=== PATIENT | male | born 1945 | race African-American/Black ===

== ENCOUNTER 2019-08-29 10:42 | Inpatient (IN) ==
--- NOTE | 2019-08-29 12:59 | XRay Report ---
XR chest 1V portable HISTORY: 73 years-old Male Chest Pain . Acute atypical chest pain COMPARISON: CT abdomen and pelvis 07/16/2012 TECHNIQUE: Portable AP view of the chest FINDINGS: Cardiac silhouette is upper limits of normal in size, unchanged. Calcified plaque of the thoracic aor tic arch. No pneumothorax, pleural effusion, focal airspace consolidation or overt pulmonary edema. B ones of the chest appear grossly intact with degenerative changes of the shoulders and spine. IMPRESSION: No acute process. The above report was generated using voice recognition software. It may contain grammatical, syntax o r spelling errors. Electronically signed by: Jens Cartagena M.D. 08/29/2019 12:57 PM
[2019-08-29 13:03] LABS: Basophils # (auto) 0.02 K/uL (0-0.2); Basophils % (auto) 0.3 %; Eosinophils # (auto) 0.09 K/uL (0-0.5); Eosinophils % (auto) 1.2 %; Hematocrit (blood only) 35.3 % (42-52); Hemoglobin 12.4 g/dL (14.0-18.0); Immature Granulocytes # (auto) 0.02 K/uL (0.00-0.02); Immature Granulocytes % (auto) 0.3 %; Lymphocytes # (auto) 2.01 K/uL (1.2-3.4); Lymphocytes % (auto) 27.3 %; Mean Corpuscular Hemoglobin 29.5 pg (25-34); Mean Corpuscular Hgb Conc 35.1 g/dL (32-36); Mean Platelet Volume 10.5 fL (7.4-10.4); Monocytes # (auto) 0.86 K/uL (0.11-0.59); Monocytes % (auto) 11.7 %; Neutrophils # (auto) 4.37 K/uL (1.4-6.5); Neutrophils % (auto) 59.2 %; Platelet Count 244 K/uL (130-400); RDW Standard Deviation 42.7 fL (36.4-46.3); White Blood Count 7.37 K/uL (4.8-10.8)
[2019-08-29 13:37] LABS: Alanine Aminotransferase 42 U/L (12-78); Albumin Globulin Ratio 0.7 (0.9-2); Alkaline Phosphatase 108 U/L (45-117); Aspartate Aminotransferase 22 U/L (15-37); BUN Creatinine Ratio 17.6 (10-20); Bilirubin,Total 0.4 mg/dl (0.2-1); Blood Urea Nitrogen 91 mg/dl (7-18); Calcium 9.4 mg/dl (8.5-10.1); Carbon Dioxide 17 mmol/L (21-32); Chloride 110 mmol/L (98-107); Creatinine Clr Calc Pharmacy 9.8 ml/min; Est GFR (African American) 11.7; Est GFR (Non-African American) 10.1; Globulin 5.5 gm/dl (2.5-4.0); Glucose 108 mg/dl (70-99); Lipase 130 U/L (73-393); Magnesium 2.7 mg/dl (1.8-2.4); NT Pro B Type Natriuretic Pept 37 pg/ml (0-900); Phosphorus 5.2 mg/dl (2.5-4.9); Potassium 4.2 mmol/L (3.5-5.1); Sodium 139 mmol/L (136-145); Total Protein 9.5 gm/dl (6.4-8.2); Troponin I < 0.015 ng/ml (0-0.045)
--- NOTE | 2019-08-29 14:03 | Ultrasound Report ---
BILATERAL LOWER EXTREMITY VENOUS DOPPLER HISTORY: Acute pain and swelling of the bilateral lower extremities BLE edema COMPARISON STUDY: None. FINDINGS: There is normal compressibility, flow, and augmentation within the bilateral lower extremit y deep venous systems. Bilateral inguinal chain lymph nodes measure up to 3.6 x 1.9 x 2.2 cm on the r ight and 2.5 x 1.1 x 1.6 cm on the left, nonspecific. IMPRESSION: 1. No DVT within the right or left lower extremity. 2. Nonspecific bilateral inguinal chain adenopathy. Electronically signed by: Jens Cartagena M.D. 08/29/2019 2:02 PM
[2019-08-29 14:19] LABS: Appearance Urine Clear (Clear); Bacteria Urine Automated Negative (Negative); Bilirubin Urine Negative (Negative); Blood Urine Negative (Negative); Color Urine Yellow; Glucose Urine UA Negative (Negative); Ketones Urine Negative (Negative); Leukocyte Esterase Urine Trace (Negative); Nitrite Urine Negative (Negative); Protein Urine Negative (Negative); RBC Urine Automated 0-4 /hpf (0-4); Specific Gravity Urine 1.016 (1.000-1.030); Urobilinogen Urine Negative (Negative)
[2019-08-29] MEDS ORDERED: SODIUM CHLORIDE 0.9% 250 ML IV ONE (14:20)
[2019-08-29] MEDS ORDERED: SODIUM CHLORIDE 0.9% 500 ML IV STA (14:20)
[2019-08-29 14:46] LABS: pH VBG 7.38 (7.36-7.41)
--- NOTE | 2019-08-29 14:48 | History & Physical Report ---
Date of Service August 29, 2019 Assessment & Plan (1) Acute renal failure (ARF): Likely 2/2 bladder outlet obstruction. Sanchez placed. Will consult Urology. Cont with OVF overnight with expected improvement in kidney function. No evidence of UTI present. (2) Hypertension: around goal, cont home amlodipine but hold HCTZ and atenolol in setting of EMILY. (3) Hyperlipidemia: Cont home Lipitor (4) Osteoarthritis: Recently worse and was using Ibuprofen, which may be contributing to EMILY above. Will need to use other measures at this time. Will start with APAP prn. (5) DVT prophylaxis: Heparin Full Code-confirmed with him on admission. Partner is present but he states his POA is his cousin. Dispo-plan for home when medically stable. Rosaura Elmore DO [facility] Hospitalist History of Present Illness Chief Complaint: Difficulty urinating Primary Care Provider: Dr. El, [facility] 73-year-old man reports several days of difficulty urinating. He reports some dysuria when he has urinated. He denies any fevers chills or flank pain. Reports he has osteoarthritis and has been taking approximately 800 mg of ibuprofen daily for this lately, which is more than he typically takes. He states he is not sure if he has a history of prostate enlargement and is not on medications for this. He does have a history of nocturia. He does report some generalized abdominal pain more so in the suprapubic region, however, on exam this is not present. He describes malaise for approximately 1 week and has been apathetic to food during this time. He also reports decreased amount of water intake as he did not want to have issues with nocturia overnight. Review of systems is otherwise negative aside from some constipation 2 days ago where he took some Valladares laxative. Of note, the patient is a [facility] patient with no prior records here. I am unable to confirm medications that he is on but have requested records from the [facility], including the last 2 progress notes and most recent BMP. Allergies Allergy/AdvReac Type Severity Reaction Status Date / Time lisinopril Allergy Intermediate MOUTH Verified 08/29/19 12:28 SWELLING simvastatin AdvReac Intermediate CONSTIPATIO Verified 08/29/19 12:28 N Home Medications Home Medications Medication Instructions Recorded Confirmed Type amlodipine 15 mg PO QAM 08/29/19 08/29/19 History aspirin 81 mg PO QAM 08/29/19 08/29/19 History atenolol 25 mg PO QAM 08/29/19 08/29/19 History atorvastatin 80 mg PO HS 08/29/19 08/29/19 History carboxymethylcellulose sodium 1 drp OPB QID PRN 08/29/19 08/29/19 History [Artificial Tears (cmc)] clobetasol 1 applic TOPICAL BID PRN 08/29/19 08/29/19 History clotrimazole 1 applic TOPICAL BID PRN 08/29/19 08/29/19 History dibucaine 1 applic MT DAILY PRN 08/29/19 08/29/19 History hydrochlorothiazide 25 mg PO HS 08/29/19 08/29/19 History ibuprofen 200 mg PO Q6H PRN 08/29/19 08/29/19 History loratadine 10 mg PO QAM 08/29/19 08/29/19 History omeprazole 20 mg PO QAM 08/29/19 08/29/19 History potassium chloride 20 meq PO QAM 08/29/19 08/29/19 History selenium sulfide 2.5 % TOPICAL UD 08/29/19 08/29/19 History zolpidem [Ambien] 5 mg PO HS PRN 08/29/19 08/29/19 History Past Med/Surg History Surgical History No history of previous surgery Family History Mother Enlarged heart Father Coronary heart disease Social History Preferred Language: [place]an Communication Ability: Effective 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 Beliefs That Will Affect Care: None Current Living Situation: Significant Other Current Living Situation Comment: In a relationship with male partner Other Information That Helps Us Care for You: No Feels Safe at Home: Yes Safety Concerns: Feels Safe At This Time Smoking Status: Former smoker Tobacco Type: cigars ; Hx Alcohol Use: No Hx Substance Use: No Review of Systems Review of Systems: All systems reviewed & are unremarkable except as noted in HPI & below Physical Exam Physical Exam: CONSTITUTIONAL: WNWD, vitals as above, generally well- appearing EYES: EOMI bilaterally, PERRL, lens opacities present, normal conjunctivae, no scleral icterus ENT: external ear and nose normal, oropharynx clear, MMM, no sinus pressure to palpation NECK: trachea midline, no lymphadenopathy RESPIRATORY: clear to auscultation bilaterally, no crackles, rales or wheezes, normal respiratory effort CARDIOVASCULAR: regular rate and rhythm, S1 and 2 heard without murmurs, gallops or rubs, no JVD, no peripheral edema GASTROINTESTINAL: normal bowel sounds, soft, nontender, nondistended MUSCULOSKELETAL: strength 5/5 throughout, head is normocephalic and atraumatic SKIN: warm and dry NEUROLOGIC: No facial palsy, no dysarthria. CN 2-12 grossly intact, no sensory deficit, normal cognition, normal speech, no gross focal deficits. PSYCHIATRIC: alert cooperative and oriented to person, place and time. Results & Data Vital Signs (Past 12 Hours) Vital Signs Temp Pulse Resp BP Pulse Ox 08/29/19 14:10 81 21 99 08/29/19 14:01 75 18 99 08/29/19 14:00 75 18 139/87 99 08/29/19 13:53 80 19 99 08/29/19 13:52 85 17 152/85 H 08/29/19 13:00 76 21 143/92 H 99 08/29/19 12:50 71 18 99 08/29/19 12:22 98 08/29/19 10:53 36.3 C L 78 20 109/71 100 Laboratory Results Short CBC 08/29/19 Range/Units 12:32 WBC 7.37 (4.8-10.8) K/uL Hgb 12.4 L (14.0-18.0) g/dL Hct 35.3 L (42-52) % Plt Count 244 (130-400) K/uL BMP 08/29/19 12:32 Sodium 139 Potassium 4.2 Chloride 110 H Carbon Dioxide 17 L BUN 91 H Creatinine 5.21 H* Glucose 108 H Calcium 9.4 Cardiac Enzymes 08/29/19 Range/Units 12:32 Troponin I < 0.015 (0-0.045) ng/ml Liver Function 08/29/19 Range/Units 12:32 Total Bilirubin 0.4 (0.2-1) mg/dl AST 22 (15-37) U/L ALT 42 (12-78) U/L Alkaline Phosphatase 108 (45-117) U/L Albumin 4.0 (3.4-5.0) gm/dl Urine 08/29/19 Range/Units 13:50 Urine Color Yellow Urine Appearance Clear (Clear) Urine pH 5.0 (4.5-7.5) Ur Specific [place] 1.016 (1.000-1.030) Urine Protein Negative (Negative) Urine Glucose (UA) Negative (Negative) Diagnostic Findings XR chest 1V portable HISTORY: 73 years-old Male Chest Pain . Acute atypical chest pain COMPARISON: CT abdomen and pelvis 07/16/2012 TECHNIQUE: Portable AP view of the chest FINDINGS: Cardiac silhouette is upper limits of normal in size, unchanged. Calcified plaque of the thoracic aortic arch. No pneumothorax, pleural effusion, focal airspace consolidation or overt pulmonary edema. Bones of the chest appear grossly intact with degenerative changes of the shoulders and spine. IMPRESSION: No acute process. Medications Administered NSS in ER-1L
--- NOTE | 2019-08-29 14:56 | CT Scan Report ---
ABDOMEN AND PELVIS CT WITHOUT CONTRAST CT DOSE: 267.66 mGy.cm HISTORY: Acute renal failure renal failure TECHNIQUE: Multiaxial CT images of the abdomen and pelvis were performed without contrast. A dose lo wering technique was utilized adhering to the principles of ALARA. COMPARISON STUDY: CT abdomen and pelvis 07/16/2012, duplex venous Doppler study 08/29/2019. FINDINGS: Clear lung bases. No pneumatosis or pneumoperitoneum. Imaged inferior cardiac chambers are unremarkab le. Coronary arterial calcifications are noted. Gallbladder, spleen, pancreas and adrenal glands are unremarkable. Liver is within normal limits. Mild nonspecific bilateral perinephric stranding. Symmetric bilateral hydroureteronephrosis with alem ed urinary bladder distention measuring up to 16.6 cm in length. Mild associated perivesicular strand ing. No ureteral or ureteral calculi. Enlarged heterogeneous prostate. Small fat filled bilateral ing uinal hernias. Mild calcified plaque the abdominal aorta. Enlarged bilateral inguinal chain lymph nod es measure up to 3.7 x 1.0 cm on the right. Small hiatal hernia. No bowel obstruction or bowel wall thickening. Normal appendix. Small fat filled periumbilical hernia, diastases of 2.8 cm. Mild stranding of the bilateral inguinal chains and upper thighs anteriorly. Bones appear to be intact. Multilevel degenerative changes of the spine. IMPRESSION: 1. Prostamegaly with markedly distended urinary bladder suggests urinary bladder outlet obstruction r esulting in mild symmetric bilateral hydroureteronephrosis. Decompression with urinary bladder cathet er may be considered. 2. Nonspecific bilateral inguinal chain adenopathy, likely reactive. 3. No bowel obstruction or bowel wall thickening. Normal appendix. 4. Small hiatal hernia. 5. Additional findings as above. Electronically signed by: Jens Cartagena M.D. 08/29/2019 2:54 PM
--- NOTE | 2019-08-29 15:06 | Emergency Department Note ---
Entered by Purvi Sanders acting as a scribe for History of Present Illness General Chief complaint: Foot Injury/Pain Stated complaint: SWOLLEN RT FOOT Time Seen by Provider: 08/29/19 11:48 Source: patient Mode of arrival: ambulatory Limitations: no limitations History of Present Illness Onset (ago): day(s) 2 Location: lower extremity (right foot) Radiation: non-radiation Pain Consistency: + constant Maximum Pain Intensity: 6 Current Pain Intensity: 6 Relieved By: + none Exacerbated By: + none Associated symptoms: no chest pain, no cough (no cough or congestion) and no s hortness of breath Treatments prior to arrival: none The patient is a 73 year old male who presents to the ED with complaints of pain and swelling in the right foot that began 2 days ago. He rates his discomfort as a 6/10 in severity. He denies any recent injury or trauma to the foot. He notes he has experienced swelling in the legs in the past, but it normally goes away. He does take a daily diuretic and does not monitor his weight. He does not take daily blood thinners. The patient used to follow with the [facility] but states his original doctor left and he has not established with a new one yet. He denies any recent cough, congestion, chest pain or shortness of breath. He also complains of urinary incontinence for the past "few nights", as well as a f eeling of incomplete emptying. Last night, he urinated himself and states this has never happened before. Home Medications Home Medications Medication Instructions Recorded Confirmed Type amlodipine 15 mg PO QAM 08/29/19 08/29/19 History aspirin 81 mg PO QAM 08/29/19 08/29/19 History atenolol 25 mg PO QAM 08/29/19 08/29/19 History atorvastatin 80 mg PO HS 08/29/19 08/29/19 History carboxymethylcellulose sodium 1 drp OPB QID PRN 08/29/19 08/29/19 History [Artificial Tears ([facility])] clobetasol 1 applic TOPICAL BID PRN 08/29/19 08/29/19 History clotrimazole 1 applic TOPICAL BID PRN 08/29/19 08/29/19 History dibucaine 1 applic MN DAILY PRN 08/29/19 08/29/19 History hydrochlorothiazide 25 mg PO HS 08/29/19 08/29/19 History ibuprofen 200 mg PO Q6H PRN 08/29/19 08/29/19 History loratadine 10 mg PO QAM 08/29/19 08/29/19 History omeprazole 20 mg PO QAM 08/29/19 08/29/19 History potassium chloride 20 meq PO QAM 08/29/19 08/29/19 History selenium sulfide 2.5 % TOPICAL UD 08/29/19 08/29/19 History zolpidem [Ambien] 5 mg PO HS PRN 08/29/19 08/29/19 History Allergies Allergy/AdvReac Type Severity Reaction Status Date / Time lisinopril Allergy Intermediate MOUTH Verified 08/29/19 12:28 SWELLING simvastatin AdvReac Intermediate CONSTIPATIO Verified 08/29/19 12:28 N Past Med/Surg History Medical History Hyperlipidemia Hypertension Osteoarthritis Surgical History No history of previous surgery Family History Mother Enlarged heart Father Coronary heart disease Social History Preferred Language: Guyanese Communication Ability: Effective Discharge Door Operator Required: No Beliefs That Will Affect Care: None Current Living Situation: Significant Other Current Living Situation Comment: In a relationship with male partner Other Information That Helps Us Care for You: No Feels Safe at Home: Yes Safety Concerns: Feels Safe At This Time Smoking Status: Former smoker Tobacco Type: cigars ; Hx Alcohol Use: No Hx Substance Use: No Review of Systems See HPI for pertinent positives & negatives. and A total of 10 systems reviewed and were otherwise negative Physical Exam Vital Signs Vital Signs - 24 hr 08/29/19 10:53 08/29/19 12:22 08/29/19 12:50 Temperature 36.3 C L Temperature Source Oral Pulse Rate 78 71 Pulse Rate from SpO2 Sensor 71 Respiratory Rate 20 18 Respiratory Effort / Characteristics Non-Labored Respiratory Depth Normal Blood Pressure 109/71 Blood Pressure Mean 83 Pulse Oximetry 100 98 99 Oxygen Delivery Method Room Air Room Air Sepsis Recent Fever Within 48 Hours No Sepsis Action Taken by Nursing No Action Required 08/29/19 13:00 08/29/19 13:52 08/29/19 13:53 Temperature Temperature Source Pulse Rate 76 85 80 Pulse Rate from SpO2 Sensor 76 80 Respiratory Rate 21 17 19 Respiratory Effort / Characteristics Respiratory Depth Blood Pressure 143/92 H 152/85 H Blood Pressure Mean 111 101 Pulse Oximetry 99 99 Oxygen Delivery Method Sepsis Recent Fever Within 48 Hours Sepsis Action Taken by Nursing 08/29/19 14:00 08/29/19 14:01 08/29/19 14:10 Temperature Temperature Source Pulse Rate 75 75 81 Pulse Rate from SpO2 Sensor 76 76 79 Respiratory Rate 18 18 21 Respiratory Effort / Characteristics Respiratory Depth Blood Pressure 139/87 Blood Pressure Mean 107 Pulse Oximetry 99 99 99 Oxygen Delivery Method Sepsis Recent Fever Within 48 Hours Sepsis Action Taken by Nursing 08/29/19 14:30 08/29/19 14:31 08/29/19 15:00 Temperature Temperature Source Pulse Rate 79 80 91 H Pulse Rate from SpO2 Sensor 79 80 91 H Respiratory Rate 21 19 19 Respiratory Effort / Characteristics Respiratory Depth Blood Pressure 135/80 Blood Pressure Mean 105 Pulse Oximetry 99 98 100 Oxygen Delivery Method Sepsis Recent Fever Within 48 Hours Sepsis Action Taken by Nursing 08/29/19 15:01 08/29/19 15:24 08/29/19 15:30 Temperature Temperature Source Pulse Rate 93 H 88 86 Pulse Rate from SpO2 Sensor 92 H 88 86 Respiratory Rate 20 24 22 Respiratory Effort / Characteristics Respiratory Depth Blood Pressure 144/91 H 146/88 H 144/84 H Blood Pressure Mean 105 108 103 Pulse Oximetry 100 99 100 Oxygen Delivery Method Sepsis Recent Fever Within 48 Hours Sepsis Action Taken by Nursing 08/29/19 15:31 08/29/19 16:00 08/29/19 16:01 Temperature Temperature Source Pulse Rate 89 79 80 Pulse Rate from SpO2 Sensor 89 79 80 Respiratory Rate 16 19 19 Respiratory Effort / Characteristics Respiratory Depth Blood Pressure 135/79 Blood Pressure Mean 99 Pulse Oximetry 100 99 99 Oxygen Delivery Method Sepsis Recent Fever Within 48 Hours Sepsis Action Taken by Nursing 08/29/19 16:30 08/29/19 16:31 Temperature Temperature Source Pulse Rate 84 86 Pulse Rate from SpO2 Sensor 85 86 Respiratory Rate 16 24 Respiratory Effort / Characteristics Respiratory Depth Blood Pressure 142/93 H Blood Pressure Mean 109 Pulse Oximetry 99 99 Oxygen Delivery Method Sepsis Recent Fever Within 48 Hours Sepsis Action Taken by Nursing GENERAL: Awake, alert, well-appearing, in no distress HENT: Normocephalic, atraumatic. Oropharynx with dry mucous membranes and oth erwise unremarkable. EYES: Normal conjunctiva. Sclera non-icteric. NECK: Supple. No nuchal rigidity. FROM. No JVD. RESPIRATORY: CTAB. CARDIAC: Regular rate, normal rhythm. Extremities warm and well perfused. Pulses equal. ABDOMEN: Soft, non-distended. Mild suprapubic fullness. No tenderness to pal pation. No rebound or guarding. No masses. RECTAL: Deferred. MUSCULOSKELETAL: Chest examination reveals no tenderness. The back is symmetrical on inspection without obvious abnormality. There is no CVA tenderness to palpation. No joint edema. LOWER EXTREMITIES: Calves are equal size bilaterally and non-tender. 1+ bilateral lower extremity pitting pedal edema. No discoloration. NEURO: Normal sensorium. No sensory or motor deficits noted. SKIN: No rash or jaundice noted. Course Course 1210: The patient was evaluated in room A10 and a complete history and physical were performed. 1417: I discussed the patients case with Dr. Elmore, [facility] Hospitalist. The patient will be further evaluated. 1425: I reevaluated the patient. He is resting comfortably. I discussed his results and my recommendation he remain in the hospital for further evaluation and management and he is agreeable with the plan. 1451: Nursing informed me the patient was feeling like his bladder is increasingly full. His initial bladder scan showed 180 CCs of urine, but the 2nd bladder scan shows 900 CCs. Administered Medications Amlodipine Besylate (Norvasc) 15 mg PO QAM [facility] Stop: 09/29/19 08:59 Last Admin: 08/30/19 08:34 Dose: 15 mg Documented by: [id number] Aspirin (Ecotrin Ectab) 81 mg PO QAM [facility] Stop: 09/29/19 08:59 Last Admin: 08/30/19 08:35 Dose: 81 mg Documented by: [id number] Atorvastatin Calcium (Lipitor) 80 mg PO HS [facility] Stop: 09/28/19 20:59 Last Admin: 08/29/19 21:25 Dose: 80 mg Documented by: [id number] Heparin Sodium (Porcine) (Heparin Sodium (Porcine)) 5,000 units SQ Q8 [facility] Stop: 09/28/19 21:59 Last Admin: 08/30/19 14:37 Dose: 5,000 units Documented by: [id number] Cosigned by: [id number] Admin: 08/30/19 05:56 Dose: 5,000 units Documented by: [id number] Cosigned by: [id number] Admin: 08/29/19 21:26 Dose: 5,000 units Documented by: [id number] Cosigned by: [id number] Loratadine (Claritin) 10 mg PO QAM [facility] Stop: 09/29/19 08:59 Last Admin: 08/30/19 08:35 Dose: 10 mg Documented by: [id number] Pantoprazole Sodium (Protonix) 40 mg PO QAM [facility] Stop: 09/29/19 08:59 Last Admin: 08/30/19 08:35 Dose: 40 mg Documented by: [id number] Discontinued Medications Sodium Chloride (Nss) 250 mls @ 999 mls/hr IV .Q16M ONE Stop: 08/29/19 14:35 Last Infusion: 08/29/19 15:28 Dose: 0 mls/hr Documented by: [id number] Admin: 08/29/19 15:01 Dose: 999 mls/hr Documented by: [id number] Sodium Chloride (Nss) 500 mls @ 125 mls/hr IV .Q4H STA Stop: 08/29/19 18:19 Last Infusion: 08/29/19 17:34 Dose: 0 mls/hr Documented by: [id number] Admin: 08/29/19 15:29 Dose: 125 mls/hr Documented by: [id number] Potassium Chloride (Klor-Con M20) 40 meq PO NOW STA Stop: 08/30/19 08:00 Last Admin: 08/30/19 08:34 Dose: 40 meq Documented by: [id number] Medical Decision Making Differential Diagnosis Differential diagnosis: Etiologies such as DVT, musculoskeletal, infection, joint effusion, trauma, lymphedema, idiopathic, CHF, as well as others were entertained. Medical Records Attestation: I reviewed the patient's medical records. Home Medications Current Medication List: was personally reviewed by me Laboratory Data Attestation: I reviewed the patient's lab results. Result diagrams: 08/30/19 05:30 08/30/19 05:30 Lab Results 08/29/19 08/29/19 08/29/19 Range/Units 12:32 12:32 13:50 WBC 7.37 (4.8-10.8) K/uL RBC 4.20 L (4.7-6.1) M/uL Hgb 12.4 L (14.0-18.0) g/dL Hct 35.3 L (42-52) % MCV 84.0 (80-100) fL MCH 29.5 (25-34) pg MCHC 35.1 (32-36) g/dL RDW Std Deviation 42.7 (36.4-46.3) fL RDW Coeff of Marlene 14.0 (11.5-14.5) % Plt Count 244 (130-400) K/uL MPV 10.5 H (7.4-10.4) fL Immature Gran % (Auto) 0.3 % Neut % (Auto) 59.2 % Lymph % (Auto) 27.3 % [place] % (Auto) 11.7 % Eos % (Auto) 1.2 % Baso % (Auto) 0.3 % Immature Gran # (Auto) 0.02 (0.00-0.02) K/uL Neut # (Auto) 4.37 (1.4-6.5) K/uL Lymph # (Auto) 2.01 (1.2-3.4) K/uL [place] # (Auto) 0.86 H (0.11-0.59) K/uL Eos # (Auto) 0.09 (0-0.5) K/uL Baso # (Auto) 0.02 (0-0.2) K/uL VBG pH (7.36-7.41) VBG pCO2 (38-50) mmHg VBG pO2 mmHg VBG HCO3 mmol/L VBG O2 Saturation % VBG Base Excess mEq/L Barometric Pressure mm/Hg Sodium 139 (136-145) mmol/L Potassium 4.2 (3.5-5.1) mmol/L Chloride 110 H (98-107) mmol/L Carbon Dioxide 17 L (21-32) mmol/L Anion Gap 12.0 H (3-11) BUN 91 H (7-18) mg/dl Creatinine 5.21 H* (0.6-1.4) mg/dl Est Cr Clr Drug Dosing 9.8 ml/min Est GFR ( Amer) 11.7 Est GFR (Non-Af Amer) 10.1 BUN/Creatinine Ratio 17.6 (10-20) Glucose 108 H (70-99) mg/dl Calcium 9.4 (8.5-10.1) mg/dl Phosphorus 5.2 H (2.5-4.9) mg/dl Magnesium 2.7 H (1.8-2.4) mg/dl Total Bilirubin 0.4 (0.2-1) mg/dl AST 22 (15-37) U/L ALT 42 (12-78) U/L Alkaline Phosphatase 108 (45-117) U/L Troponin I < 0.015 (0-0.045) ng/ml NT-Pro-B Natriuret Pep 37 (0-900) pg/ml Total Protein 9.5 H (6.4-8.2) gm/dl Albumin 4.0 (3.4-5.0) gm/dl Globulin 5.5 H (2.5-4.0) gm/dl Albumin/Globulin Ratio 0.7 L (0.9-2) Lipase 130 (73-393) U/L Urine Color Yellow Urine Appearance Clear (Clear) Urine pH 5.0 (4.5-7.5) Ur Specific [place] 1.016 (1.000-1.030) Urine Protein Negative (Negative) Urine Glucose (UA) Negative (Negative) Urine Ketones Negative (Negative) Urine Blood Negative (Negative) Urine Nitrite Negative (Negative) Urine Bilirubin Negative (Negative) Urine Urobilinogen Negative (Negative) Ur Leukocyte Esterase Trace H (Negative) Urine WBC (Auto) 5-10 H (0-5) /hpf Urine RBC (Auto) 0-4 (0-4) /hpf U Hyaline Cast (Auto) 1-5 (0-5) /lpf U Epithel Cells (Auto) 5-10 H (0-5) /lpf Urine Bacteria (Auto) Negative (Negative) Ur Random Creatinine mg/dl U Random Total Protein (0-11.9) mg/dl Ur Random Sodium mmol/L Ur Random Urea Nitrogn mg/dl Protein/Creatinin Ratio (0-0.2) 08/29/19 08/29/19 Range/Units 13:50 14:30 WBC (4.8-10.8) K/uL RBC (4.7-6.1) M/uL Hgb (14.0-18.0) g/dL Hct (42-52) % MCV (80-100) fL MCH (25-34) pg MCHC (32-36) g/dL RDW Std Deviation (36.4-46.3) fL RDW Coeff of Marlene (11.5-14.5) % Plt Count (130-400) K/uL MPV (7.4-10.4) fL Immature Gran % (Auto) % Neut % (Auto) % Lymph % (Auto) % [place] % (Auto) % Eos % (Auto) % Baso % (Auto) % Immature Gran # (Auto) (0.00-0.02) K/uL Neut # (Auto) (1.4-6.5) K/uL Lymph # (Auto) (1.2-3.4) K/uL [place] # (Auto) (0.11-0.59) K/uL Eos # (Auto) (0-0.5) K/uL Baso # (Auto) (0-0.2) K/uL VBG pH 7.38 (7.36-7.41) VBG pCO2 31 L (38-50) mmHg VBG pO2 51 mmHg VBG HCO3 18 mmol/L VBG O2 Saturation 84.0 % VBG Base Excess -6.0 mEq/L Barometric Pressure 737.4 mm/Hg Sodium (136-145) mmol/L Potassium (3.5-5.1) mmol/L Chloride (98-107) mmol/L Carbon Dioxide (21-32) mmol/L Anion Gap (3-11) BUN (7-18) mg/dl Creatinine (0.6-1.4) mg/dl Est Cr Clr Drug Dosing ml/min Est GFR ( Amer) Est GFR (Non-Af Amer) BUN/Creatinine Ratio (10-20) Glucose (70-99) mg/dl Calcium (8.5-10.1) mg/dl Phosphorus (2.5-4.9) mg/dl Magnesium (1.8-2.4) mg/dl Total Bilirubin (0.2-1) mg/dl AST (15-37) U/L ALT (12-78) U/L Alkaline Phosphatase (45-117) U/L Troponin I (0-0.045) ng/ml NT-Pro-B Natriuret Pep (0-900) pg/ml Total Protein (6.4-8.2) gm/dl Albumin (3.4-5.0) gm/dl Globulin (2.5-4.0) gm/dl Albumin/Globulin Ratio (0.9-2) Lipase (73-393) U/L Urine Color Urine Appearance (Clear) Urine pH (4.5-7.5) Ur Specific [place] (1.000-1.030) Urine Protein (Negative) Urine Glucose (UA) (Negative) Urine Ketones (Negative) Urine Blood (Negative) Urine Nitrite (Negative) Urine Bilirubin (Negative) Urine Urobilinogen (Negative) Ur Leukocyte Esterase (Negative) Urine WBC (Auto) (0-5) /hpf Urine RBC (Auto) (0-4) /hpf U Hyaline Cast (Auto) (0-5) /lpf U Epithel Cells (Auto) (0-5) /lpf Urine Bacteria (Auto) (Negative) Ur Random Creatinine 172.0 mg/dl U Random Total Protein 10.5 (0-11.9) mg/dl Ur Random Sodium 22 mmol/L Ur Random Urea Nitrogn 616 mg/dl Protein/Creatinin Ratio 0.1 (0-0.2) Imaging Data Radiologist's Impression: Radiology results as stated below per my review and the radiologist's interpretation: XR chest 1V portable HISTORY: 73 years-old Male Chest Pain . Acute atypical chest pain COMPARISON: CT abdomen and pelvis 07/16/2012 TECHNIQUE: Portable AP view of the chest FINDINGS: Cardiac silhouette is upper limits of normal in size, unchanged. Calcified plaque of the thoracic aortic arch. No pneumothorax, pleural effusion, focal airspace consolidation or overt pulmonary edema. Bones of the chest appear grossly intact with degenerative changes of the shoulders and spine. IMPRESSION: No acute process. The above report was generated using voice recognition software. It may contain grammatical, syntax or spelling errors. Electronically signed by: Jens Cartagena M.D. 08/29/2019 12:57 PM BILATERAL LOWER EXTREMITY VENOUS DOPPLER HISTORY: Acute pain and swelling of the bilateral lower extremities BLE edema COMPARISON STUDY: None. FINDINGS: There is normal compressibility, flow, and augmentation within the bilateral lower extremity deep venous systems. Bilateral inguinal chain lymph nodes measure up to 3.6 x 1.9 x 2.2 cm on the right and 2.5 x 1.1 x 1.6 cm on the left, nonspecific. IMPRESSION: 1. No DVT within the right or left lower extremity. 2. Nonspecific bilateral inguinal chain adenopathy. ---- ABDOMEN AND PELVIS CT WITHOUT CONTRAST CT DOSE: 267.66 mGy.cm HISTORY: Acute renal failure renal failure TECHNIQUE: Multiaxial CT images of the abdomen and pelvis were performed without contrast. A dose lowering technique was utilized adhering to the principles of ALARA. COMPARISON STUDY: CT abdomen and pelvis 07/16/2012, duplex venous Doppler study 08/29/2019. FINDINGS: Clear lung bases. No pneumatosis or pneumoperitoneum. Imaged inferior cardiac chambers are unremarkable. Coronary arterial calcifications are noted. Gallbladder, spleen, pancreas and adrenal glands are unremarkable. Liver is within normal limits. Mild nonspecific bilateral perinephric stranding. Symmetric bilateral hydroureteronephrosis with marked urinary bladder distention measuring up to 16.6 cm in length. Mild associated perivesicular stranding. No ureteral or ureteral calculi. Enlarged heterogeneous prostate. Small fat filled bilateral inguinal hernias. Mild calcified plaque the abdominal aorta. Enlarged bilateral inguinal chain lymph nodes measure up to 3.7 x 1.0 cm on the right. Small hiatal hernia. No bowel obstruction or bowel wall thickening. Normal appendix. Small fat filled periumbilical hernia, diastases of 2.8 cm. Mild stranding of the bilateral inguinal chains and upper thighs anteriorly. Bones appear to be intact. Multilevel degenerative changes of the spine. IMPRESSION: 1. Prostamegaly with markedly distended urinary bladder suggests urinary bladder outlet obstruction resulting in mild symmetric bilateral hydroureteronephrosis. Decompression with urinary bladder catheter may be considered. 2. Nonspecific bilateral inguinal chain adenopathy, likely reactive. 3. No bowel obstruction or bowel wall thickening. Normal appendix. 4. Small hiatal hernia. 5. Additional findings as above. Electronically signed by: Jens Cartagena M.D. 08/29/2019 2:54 PM Dictated: 08/29/19 1446 Transcribed: 08/29/19 1446 Electronically signed by: Jens Cartagena M.D. 08/29/2019 2:02 PM ECG Data Attestation: I personally reviewed and interpreted this ECG as follows: Indication: + other (swelling in foot) Rate (beats per minute): 74 Rhythm: + normal sinus ECG Intervals/blocks: + Right Bundle branch block, + Normal QRS (QRS is 140) and + Normal QT-c (QTC is 444) ECG ST segments: no ST depression and no ST elevation ECG Findings: no PACs and no PVCs Comparison ECG Date: from (07/16/12) Change: the following changes noted (Similar EKG without PVC) Blood Pressure Blood Pressure Findings: Elevated blood pressure Blood Pressure Disposition: further management by hospitalist LOY Dennis The patient is a pleasant 73-year-old gentleman with a past medical history of hypertension hyperlipidemia who presents to the emergency department with complaint of bilateral feet swelling and urinary incontinence over the past couple of days per HPI. On arrival the patient is in no acute distress, afebrile with stable vital signs. On exam the patient has 1+ bilateral lower extremity pitting pedal edema. There is no tenderness in the calves. Patient has mild fullness of the suprapubic region without tenderness. He does have dry mucous membranes. EKG without overt acute ischemia. Chest x-ray negative for acute process. WBC and platelets within normal limits. H/H 12.4/35.3 without prior values for comparison. Chemistry does demonstrate what appears to be acute renal failure with a creatinine of 5.2 and BUN of 91. Bicarb is 17 with anion gap of 12. However, VBG without acidosis. Magnesium and phosphorus are elevated at 2.7 and 5.2, respectively. LFTs unremarkable. Troponin negative/ undetectable and BNP within normal limits. UA without convincing evidence of infection. No protein. Of note, I did review the patient's lab results with the patient and he appears to be confident that he has never had any history of kidney disease. CT abdomen pelvis was ordered and pending. Post void bladder scan by nursing initially did not indicate any retention with approximately 180 cc detected. However, upon return from CT, within approximately ~40 minutes of initial bladder scan the patient complained of need to urinate again and felt fullness and at this time 900 cc were detected. Thus, Sanchez catheter was placed. Unclear cause of the discrepancy between bladder scans within such a short period of time however initial measurement may have been erroneous. Case was discussed with Dr. Elmore, [facility] hospitalist, who will evaluate the patient for admission. CT results subsequently demonstrate enlarged prostate with bladder outlet obstruction and associated hydronephrosis. Impression & Plan Acute renal failure (ARF), Bladder outlet obstruction, Benign prostatic hyperplasia, History of hypertension Discharge Plan Visit Data *Final* Discharge Date/Time: 08/29/19 16:58 Chief Complaint: Foot Injury/Pain Stated Complaint: SWOLLEN RT FOOT ED Provider: Macho Henderson Discharge Problem: Acute renal failure (ARF), Bladder outlet obstruction, Benign prostatic hyperplasia, History of hypertension Patient Disposition: Admitted As Inpatient Discharge Instructions Interventions: ED Discharge Assessment Last Done: 08/29/19 16:58 Discharge Problem: Acute renal failure (ARF) Qualifiers: Acute renal failure type: unspecified Qualified Code(s): N17.9 - Acute kidney failure, unspecified The scribe's documentation has been prepared under my direction and personally reviewed by me in its entirety. I confirm that the note above accurately reflects all work, treatment, procedures, and medical decision making performed by me.
[2019-08-29 16:16] LABS: Protein Creatinine Ratio Urine 0.1 (0-0.2); Total Protein Urine Random 10.5 mg/dl (0-11.9)
[2019-08-29] MEDS ORDERED: ONDANSETRON INJ 2 MG/ML 2 ML VIAL IV PRN (17:29)
[2019-08-29] MEDS ORDERED: POLYETHYLENE (MIRALAX) 17 GM PACK PO PRN (17:29)
[2019-08-29] MEDS ORDERED: ACETAMINOPHEN 325 MG TAB PO PRN (17:29)
[2019-08-29] MEDS ORDERED: ARTIFICIAL TEARS OP PRN (17:35)
[2019-08-29 19:30] LABS: BUN Creatinine Ratio 22.9 (10-20); Creatinine Clr Calc Pharmacy 14.5 ml/min; Est GFR (African American) 18.9; Est GFR (Non-African American) 16.3; Potassium 3.6 mmol/L (3.5-5.1)
[2019-08-29] MEDS: ATORVASTATIN 40 MG TAB PO SCH (21:25)
[2019-08-29] MEDS: HEPARIN SOD 5,000 UNIT/0.5 ML VIAL SQ SCH (21:26)
[2019-08-30] MEDS: HEPARIN SOD 5,000 UNIT/0.5 ML VIAL SQ SCH ×3 (05:56→21:04)
[2019-08-30 06:04] LABS: Hematocrit (blood only) 35.4 % (42-52); Hemoglobin 12.1 g/dL (14.0-18.0); Mean Corpuscular Hemoglobin 28.9 pg (25-34); Mean Corpuscular Hgb Conc 34.2 g/dL (32-36); Mean Corpuscular Volume 84.5 fL (80-100); Mean Platelet Volume 10.6 fL (7.4-10.4); Platelet Count 239 K/uL (130-400); RDW Coefficient of Variation 14.1 % (11.5-14.5); RDW Standard Deviation 43.5 fL (36.4-46.3); Red Blood Count 4.19 M/uL (4.7-6.1)
[2019-08-30 06:48] LABS: BUN Creatinine Ratio 30.7 (10-20); Calcium 9.5 mg/dl (8.5-10.1); Creatinine Clr Calc Pharmacy 25.5 ml/min; Est GFR (African American) 37.5; Est GFR (Non-African American) 32.4; Magnesium 2.1 mg/dl (1.8-2.4); Phosphorus 4.8 mg/dl (2.5-4.9); Potassium 3.2 mmol/L (3.5-5.1)
[2019-08-30] MEDS ORDERED: POTASSIUM CHLORIDE 20 MEQ TABCR PO STA (07:59)
[2019-08-30] MEDS: AMLODIPINE BESYLATE 5 MG TAB PO SCH (08:34)
[2019-08-30] MEDS: PANTOprazole 40 MG TAB PO SCH (08:35)
[2019-08-30] MEDS: ASPIRIN 81 MG ECTAB PO SCH (08:35)
[2019-08-30] MEDS: LORATADINE 10 MG TAB PO SCH (08:35)
--- NOTE | 2019-08-30 09:26 | Urology Consultation ---
Date of Consultation August 30, 2019 Assessment & Plan (1) Benign prostatic hyperplasia: 73yo (2) Acute renal failure (ARF): 73yo M admitted with CAVAZOS, EMILY; with indwelling velásquez catheter in place. Drained approx 2L urine at time of velásquez insertion. Cr already drastically improved with max drainage. Plan to maintain velásquez catheter for 10-14 days, outpatient TOV at that time. Will add finasteride and tamsulosin for max medical therapy. Pt will need PSA, DAKSHA and cystoscopy to further evaluate anatomy upon discharge, he is agreeable. We will continue to follow peripherally while inpatient. Thank you for the consultation. History of Present Illness Reason for Consultation: EMILY, CAVAZOS Requesting Physician: Dr. Barrios Attending Physician: Kings Barrios MD History of Present Illness 73yo M admitted via [facility] ED after weeks of difficulty voiding, urinary symptoms. Found to be in acute kidney failure, with Cr 5.[address] abd/pelvis reveals severely distended bladder, prostatomegaly, mild bilateral hydronephrosis. No stones. Velásquez catheter placed in ED with no difficulty per patient, drained ~2L urine. No previous urologic evaluation, does not take any medications for BPH. [facility] and has always been good. No DAKSHA for some time. Good historian, Appears to be tolerating catheter well. Denies flank or suprapubic discomfort, bladder spasms. Sitting up in bed, tolerating regular diet. Denies n/v/f/c. Pt states his brother had "prostate issues", had it "removed" and a few years ago. Allergies Allergy/AdvReac Type Severity Reaction Status Date / Time lisinopril Allergy Intermediate MOUTH Verified 08/29/19 12:28 SWELLING simvastatin AdvReac Intermediate CONSTIPATIO Verified 08/29/19 12:28 N Home Medications Home Medications Medication Instructions Recorded Confirmed Type amlodipine 15 mg PO QAM 08/29/19 08/29/19 History aspirin 81 mg PO QAM 08/29/19 08/29/19 History atenolol 25 mg PO QAM 08/29/19 08/29/19 History atorvastatin 80 mg PO HS 08/29/19 08/29/19 History carboxymethylcellulose sodium 1 drp OPB QID PRN 08/29/19 08/29/19 History [Artificial Tears (cmc)] clobetasol 1 applic TOPICAL BID PRN 08/29/19 08/29/19 History clotrimazole 1 applic TOPICAL BID PRN 08/29/19 08/29/19 History dibucaine 1 applic [place] DAILY PRN 08/29/19 08/29/19 History hydrochlorothiazide 25 mg PO HS 08/29/19 08/29/19 History ibuprofen 200 mg PO Q6H PRN 08/29/19 08/29/19 History loratadine 10 mg PO QAM 08/29/19 08/29/19 History omeprazole 20 mg PO QAM 08/29/19 08/29/19 History potassium chloride 20 meq PO QAM 08/29/19 08/29/19 History selenium sulfide 2.5 % TOPICAL UD 08/29/19 08/29/19 History zolpidem [Ambien] 5 mg PO HS PRN 08/29/19 08/29/19 History Patient History Medical History Hyperlipidemia Hypertension Osteoarthritis Surgical History No history of previous surgery Family History Mother Enlarged heart Father Coronary heart disease Social History Preferred Language: German Communication Ability: Effective Child Psychiatrist Required: No Beliefs That Will Affect Care: None Current Living Situation: Significant Other Current Living Situation Comment: In a relationship with male partner Other Information That Helps Us Care for You: No Feels Safe at Home: Yes Safety Concerns: Feels Safe At This Time Smoking Status: Former smoker Tobacco Type: cigars ; Hx Alcohol Use: No Hx Substance Use: No Review of Systems Review of Systems: All systems reviewed & are unremarkable except as noted in HPI & below Physical Exam Constitutional: well nourished; no acute distress and not ill appearing Eyes: no nystagmus ENMT: Ears: no hearing impairment Neck: trachea midline Respiratory: no respiratory distress and no cough Cardiovascular: Vessels: no JVD Chest (Breasts): Chest: normal inspection of chest Gastrointestinal (Abdomen): Inspection/Auscultation: abdomen not distended and no abdominal edema Percussion/Palpation: + abdomen tender (slightly tender to lower abdomen) and abdomen soft Musculoskeletal: Head/Neck/Chest: normocephalic and head atraumatic Skin: no rashes, warm and dry Neurologic: awake; not confused and not obtunded Psychiatric: Orientation: alert and oriented x 3 Eye Contact: good eye contact Affect: no depressed affect Genitourinary: + circumcised; no CVA tenderness, no penile swelling and no meatus abnormal velásquez draining clear yellow Lymphatic: no lymphadenopathy and no lymphedema Results & Data Vital Signs (Past 12 Hours) Vital Signs Temp Pulse Pulse Pulse Resp BP BP 08/30/19 08:00 36.4 C L 91 H 18 120/73 08/30/19 07:01 84 08/30/19 05:12 83 08/30/19 04:00 37.0 C 82 18 145/62 H 08/30/19 00:22 36.7 C 83 20 131/74 Pulse Ox 08/30/19 08:00 100 08/30/19 07:01 08/30/19 05:12 08/30/19 04:00 97 08/30/19 00:22 98 PG Care Time/CCT Total # of Minutes Spent Total Time Spent with Patient: Total time spent is greater than 50% in coordi nation of care (as documented) at patient's floor/unit and/or counseling patient:
--- NOTE | 2019-08-30 15:15 | Hospitalist Progress Note ---
Date of Service August 30, 2019 Assessment & Plan (1) Acute renal failure (ARF): Possible due to bladder outlet obstruction CT abd/pelvis showed markedly distended urinary bladder suggests urinary bladder outlet obstruction resulting in mild symmetric bilateral hydroureteronephrosis. Creatinine 5.2 on admission Velásquez cath placed and with good urine output Creatinine improved 1.9 Urologist on board recommended to maintain velásquez catheter for 10-14 days Continue Tamsulosin and Finasteride daily (2) Hypertension: BP stable Continue to hold HCTZ Continue home amlodipine Will resume Atenolol (3) Hyperlipidemia: Continue home Lipitor (4) Osteoarthritis: Continue Tylenol stable (5) DVT prophylaxis: Heparin subq CODE STATUS Full Code Disposition Will discharge tomorrow Subjective Pt was seen and examined Lying in bed with no distress Pt said that he feels fine Denies any chest pain, palpitation, dizziness and SOB Physical Exam Physical Exam: General- No acute distress Head- atraumatic Eyes- PERRL, EOMI, ENT- oropharynx clear Neck- supple, no JVD Lungs- clear to auscultation Heart- regular rhythm; no murmur Abdomen- normal bowel sounds, soft, nontender Extremities- no calf tenderness Neuro- alert, oriented x 3; PERRL, EOMI; no facial palsy; no dysarthria Skin- warm & dry Results & Data Vital Signs (Past 12 Hours) Vital Signs Temp Pulse Pulse Pulse Resp BP BP 08/30/19 11:34 36.9 C 92 H 18 132/69 08/30/19 08:00 36.4 C L 91 H 18 120/73 08/30/19 07:01 84 08/30/19 05:12 83 08/30/19 04:00 37.0 C 82 18 145/62 H Pulse Ox 08/30/19 11:34 97 08/30/19 08:00 100 08/30/19 07:01 08/30/19 05:12 08/30/19 04:00 97
[2019-08-30] MEDS ORDERED: TAMSULOSIN HCL 0.4 MG CAP PO SCH (21:00)
[2019-08-30] MEDS: ATORVASTATIN 40 MG TAB PO SCH (21:04)
[2019-08-31] MEDS: HEPARIN SOD 5,000 UNIT/0.5 ML VIAL SQ SCH ×2 (05:09→13:31)
[2019-08-31 07:15] LABS: BUN Creatinine Ratio 27.6 (10-20); Calcium 8.9 mg/dl (8.5-10.1); Creatinine Clr Calc Pharmacy 39.4 ml/min; Est GFR (African American) 63.3; Est GFR (Non-African American) 54.6; Potassium 3.2 mmol/L (3.5-5.1)
[2019-08-31] MEDS ORDERED: POTASSIUM CHLORIDE 20 MEQ TABCR PO STA (08:17)
[2019-08-31] MEDS: PANTOprazole 40 MG TAB PO SCH (08:23)
[2019-08-31] MEDS: ASPIRIN 81 MG ECTAB PO SCH (08:23)
[2019-08-31] MEDS: AMLODIPINE BESYLATE 5 MG TAB PO SCH (08:23)
[2019-08-31] MEDS: LORATADINE 10 MG TAB PO SCH (08:24)
[2019-08-31] MEDS ORDERED: FINASTERIDE 5 MG TAB PO SCH (09:00)
--- NOTE | 2019-08-31 15:03 | Hospitalist Progress Note ---
Date of Service August 31, 2019 Assessment & Plan (1) Acute renal failure (ARF): Possible due to bladder outlet obstruction CT abd/pelvis showed markedly distended urinary bladder suggests urinary bladder outlet obstruction resulting in mild symmetric bilateral hydroureteronephrosis. Creatinine 5.2 on admission Velásquez cath placed and with good urine output Creatinine is back to normal 1.2 today Urologist on board recommended to maintain velásquez catheter for 10-14 days Continue Tamsulosin and Finasteride daily Follow up with [facility] in 1-2 weeks (2) Hypertension: BP stable HCTZ has been on hold due to elevate creatinine Continue home amlodipine and atenolol Will resume HCTZ on discharge (3) Hyperlipidemia: Continue home Lipitor (4) Osteoarthritis: Continue Tylenol stable (5) DVT prophylaxis: Heparin subq CODE STATUS Full Code Disposition Will discharge today [facility] with [facility] in 1-2 weeks Subjective Pt was seen and examined Lying in bed with no distress Pt said that he feels fine Denies any chest pain, palpitation, dizziness and SOB Physical Exam Physical Exam: General- No acute distress Head- atraumatic Eyes- PERRL, EOMI, ENT- oropharynx clear Neck- supple, no JVD Lungs- clear to auscultation Heart- regular rhythm; no murmur Abdomen- normal bowel sounds, soft, nontender Extremities- no calf tenderness Neuro- alert, oriented x 3; PERRL, EOMI; no facial palsy; no dysarthria Skin- warm & dry Results & Data Vital Signs (Past 12 Hours) Vital Signs Temp Pulse Pulse Resp BP Pulse Ox 08/31/19 11:00 36.5 C 91 H 18 135/76 95 08/31/19 07:21 36.7 C 90 18 122/76 95 08/31/19 07:18 90 08/31/19 03:34 36.9 C 90 21 107/62 95 (1) Acute renal failure (ARF) Acute renal failure type: unspecified Qualified Code(s): N17.9 - Acute kidney failure, unspecified
--- NOTE | 2019-09-03 08:44 | Discharge Summary ---
Date of Service August 31, 2019 Admission HPI Per Admitting Provider 73-year-old man reports several days of difficulty urinating. He reports some dysuria when he has urinated. He denies any fevers chills or flank pain. Reports he has osteoarthritis and has been taking approximately 800 mg of ibuprofen daily for this lately, which is more than he typically takes. He states he is not sure if he has a history of prostate enlargement and is not on medications for this. He does have a history of nocturia. He does report some generalized abdominal pain more so in the suprapubic region, however, on exam this is not present. He describes malaise for approximately 1 week and has been apathetic to food during this time. He also reports decreased amount of water intake as he did not want to have issues with nocturia overnight. Review of systems is otherwise negative aside from some constipation 2 days ago where he took some Valladares laxative. Of note, the [facility] with no prior records here. I am unable to confirm medications that he is on but have requ est[facility] the [facility], including the last 2 progress notes and most recent BMP. Admission Exam Per Admitting Provider CONSTITUTIONAL: WNWD, vitals as above, generally well-appearing EYES: EOMI bilaterally, PERRL, lens opacities present, normal conjunctivae, no scleral icterus ENT: external ear and nose normal, oropharynx clear, MMM, no sinus pressure to palpation NECK: trachea midline, no lymphadenopathy RESPIRATORY: clear to auscultation bilaterally, no crackles, rales or wheezes, normal respiratory effort CARDIOVASCULAR: regular rate and rhythm, S1 and 2 heard without murmurs, gallops or rubs, no JVD, no peripheral edema GASTROINTESTINAL: normal bowel sounds, soft, nontender, nondistended MUSCULOSKELETAL: strength 5/5 throughout, head is normocephalic and atraumatic SKIN: warm and dry NEUROLOGIC: No facial palsy, no dysarthria. CN 2-12 grossly intact, no sensory deficit, normal cognition, normal speech, no gross focal deficits. PSYCHIATRIC: alert cooperative and oriented to person, place and time. Principal Diagnosis (1) Acute renal failure (ARF): (2) Hypertension: (3) Hyperlipidemia: (4) Osteoarthritis: Discharge Exam General- No acute distress Head- atraumatic Eyes- PERRL, EOMI, ENT- oropharynx clear Neck- supple, no JVD Lungs- clear to auscultation Heart- regular rhythm; no murmur Abdomen- normal bowel sounds, soft, nontender Extremities- no calf tenderness Neuro- alert, oriented x 3; PERRL, EOMI; no facial palsy; no dysarthria Skin- warm & dry Discharge Data Allergies Allergy/AdvReac Type Severity Reaction Status Date / Time lisinopril Allergy Intermediate MOUTH Verified 08/29/19 12:28 SWELLING simvastatin AdvReac Intermediate CONSTIPATIO Verified 08/29/19 12:28 N Consultations 08/29/19 14:15 ED Decision to Admit Stat 08/29/19 17:29 Consult Case Management - Discharge Planning Routine 08/29/19 18:03 Consult Urology Routine 08/29/19 18:09 Consult Health Information Management Routine Ordered Studies 08/29/19 12:22 US venous doppler LE BI Stat 08/29/19 14:10 CT abd pelvis wo con Stat ABDOMEN AND PELVIS CT WITHOUT CONTRAST CT DOSE: 267.66 mGy.cm HISTORY: Acute renal failure renal failure TECHNIQUE: Multiaxial CT images of the abdomen and pelvis were performed without contrast. A dose lowering technique was utilized adhering to the principles of ALARA. COMPARISON STUDY: CT abdomen and pelvis 07/16/2012, duplex venous Doppler study 08/29/2019. FINDINGS: Clear lung bases. No pneumatosis or pneumoperitoneum. Imaged inferior cardiac chambers are unremarkable. Coronary arterial calcifications are noted. Gallbladder, spleen, pancreas and adrenal glands are unremarkable. Liver is within normal limits. Mild nonspecific bilateral perinephric stranding. Symmetric bilateral hydroureteronephrosis with marked urinary bladder distention measuring up to 16.6 cm in length. Mild associated perivesicular stranding. No ureteral or ureteral calculi. Enlarged heterogeneous prostate. Small fat filled bilateral inguinal hernias. Mild calcified plaque the abdominal aorta. Enlarged bilateral inguinal chain lymph nodes measure up to 3.7 x 1.0 cm on the right. Small hiatal hernia. No bowel obstruction or bowel wall thickening. Normal appendix. Small fat filled periumbilical hernia, diastases of 2.8 cm. Mild stranding of the bilateral inguinal chains and upper thighs anteriorly. Bones appear to be intact. Multilevel degenerative changes of the spine. IMPRESSION: 1. Prostamegaly with markedly distended urinary bladder suggests urinary bladder outlet obstruction resulting in mild symmetric bilateral hydroureteronephrosis. Decompression with urinary bladder catheter may be considered. 2. Nonspecific bilateral inguinal chain adenopathy, likely reactive. 3. No bowel obstruction or bowel wall thickening. Normal appendix. 4. Small hiatal hernia. 5. Additional findings as above. Electronically signed by: Jens Cartagena M.D. 08/29/2019 2:54 PM Dictated: 08/29/19 1446 Transcribed: 08/29/19 1446 BILATERAL LOWER EXTREMITY VENOUS DOPPLER HISTORY: Acute pain and swelling of the bilateral lower extremities BLE edema COMPARISON STUDY: None. FINDINGS: There is normal compressibility, flow, and augmentation within the bilateral lower extremity deep venous systems. Bilateral inguinal chain lymph nodes measure up to 3.6 x 1.9 x 2.2 cm on the right and 2.5 x 1.1 x 1.6 cm on the left, nonspecific. IMPRESSION: 1. No DVT within the right or left lower extremity. 2. Nonspecific bilateral inguinal chain adenopathy. Electronically signed by: Jens Cartagena M.D. 08/29/2019 2:02 PM Dictated: 08/29/19 1400 Transcribed: 08/29/19 1400 XR chest 1V portable HISTORY: 73 years-old Male Chest Pain . Acute atypical chest pain COMPARISON: CT abdomen and pelvis 07/16/2012 TECHNIQUE: Portable AP view of the chest FINDINGS: Cardiac silhouette is upper limits of normal in size, unchanged. Calcified plaque of the thoracic aortic arch. No pneumothorax, pleural effusion, focal airspace consolidation or overt pulmonary edema. Bones of the chest appear grossly intact with degenerative changes of the shoulders and spine. IMPRESSION: No acute process. The above report was generated using voice recognition software. It may contain grammatical, syntax or spelling errors. Electronically signed by: Jens Cartagena M.D. 08/29/2019 12:57 PM Dictated: 08/29/19 1257 Transcribed: 08/29/19 1257 Hospital Course (1) Acute renal failure (ARF): Possible due to bladder outlet obstruction CT abd/pelvis showed markedly distended urinary bladder suggests urinary bladder outlet obstruction resulting in mild symmetric bilateral hydroureteronephrosis. Creatinine 5.2 on admission Velásquez cath placed and with good urine output Creatinine is back to normal 1.2 today Urologist on board recommended to maintain velásquez catheter for 10-14 days Continue Tamsulosin and Finasteride daily Follow up with [facility] urology in 1-2 weeks (2) Hypertension: BP stable HCTZ has been on hold due to elevate creatinine Continue home amlodipine and atenolol Will resume HCTZ on discharge (3) Hyperlipidemia: Continue home Lipitor (4) Osteoarthritis: Continue Tylenol stable (5) DVT prophylaxis: Heparin subq CODE STATUS Full Code Disposition Will discharge today Follow up with your primary care provider [facility] Follow up with [facility] urology in 1-2 weeks Total Time Total Time Spent Total Time Spent (In Minutes): 35 minutes Total Time Includes: Examination of the Patient, Discharge Planning, Medication Reconciliation, Communication With Other Providers and Other Discharge Plan Discharge Items Patient Disposition: Home - Self-Care Reason For Visit: ACUTE RENAL FAILURE Discharge Diagnosis: (1) Acute renal failure (ARF): (2) Hypertension: (3) Hyperlipidemia: (4) Osteoarthritis: Activity: Resume your previous activity Activity Comment: As tolerated Non-emergency contact: Primary Care Provider and Urologist Call non-emergency contact if: you have any medication questions Follow-up/Referrals: Maury Hartley MD [Primary Care Provider] - Diet: Heart Healthy Addtl Attending Provider Instructions: Follow up with your primary care provider at the [facility] within 1 week (Please call to schedule the follow up appointment) Follow up with [facility] urology in 1-2 weeks. (Please call to schedule follow up appointment, business card information for urology given) Keep Velásquez catheter on for now until seeing the urology Check BMP in 1-2 weeks after removing the Velásquez catheter to monitor kidney function and electrolytes Avoid taking too much NSAIDS such as motrin, aleve, naproxen, ibuprofen, advil due to the risk of kidney failure Use Tylenol as needed for pain Pending Studies at Discharge: No Stand-Alone Forms: My [employer], Smoking Cessation Medications and DC Order Prescriptions: New tamsulosin 0.4 mg Capsule 0.4 mg PO HS 30 Days Qty: 30 RF: 0 finasteride [Proscar] 5 mg Tablet 5 mg PO QAM 30 Days Qty: 30 RF: 0 Continued atorvastatin 80 mg Tablet 80 mg PO HS RF: 0 dibucaine 1 % Ointment 1 applic AL DAILY PRN (Reason: Hemorrhoids) RF: 0 atenolol 25 mg Tablet 25 mg PO QAM RF: 0 aspirin 81 mg Tablet,Delayed Release (Dr/Ec) 81 mg PO QAM RF: 0 amlodipine 10 mg Tablet 15 mg PO QAM RF: 0 hydrochlorothiazide 25 mg Tablet 25 mg PO HS RF: 0 zolpidem [Ambien] 5 mg Tablet 5 mg PO HS PRN (Reason: Insomnia) RF: 0 clotrimazole 1 % Cream 1 applic TOPICAL BID PRN (Reason: Jock Itch) RF: 0 loratadine 10 mg Tablet 10 mg PO QAM RF: 0 clobetasol 0.05 % Lotion 1 applic TOPICAL BID PRN (Reason: Itchy Rash) RF: 0 omeprazole 20 mg Tablet,Delayed Release (Dr/Ec) 20 mg PO QAM RF: 0 potassium chloride 20 mEq Tablet Extended Release 20 meq PO QAM RF: 0 selenium sulfide 2.5 % Lotion 2.5 % TOPICAL UD RF: 0 Artificial Tears (cmc) 1 % Drops 1 drp OPB QID PRN (Reason: Dry Eyes) RF: 0 ibuprofen 200 mg Tablet 200 mg PO Q6H PRN (Reason: Pain) RF: 0 Discharge Orders: Discharge Order (Routine); Ordered 08/31/19 Ordered By: Kings Barrios Admission Data Admit Date/Time: 08/29/19 14:50 Attending Provider: Kings Barrios Admit Provider: Rosaura Elmore Primary Care Provider: Maury Hartley Other Providers: Rosaura Elmore ; Andrew Valladares Other Interventions: Discharge Summary Assessment (RN) Last Done: 08/31/19 15:24 DC Date/Time DO NOT enter until pt leaves facility: 08/31/19 15:46
== END 2019-08-31 15:46 | disposition home or self-care (01) | DRG 699 ==
LOC: ED 10:42 → SUATTDRO 14:50 → 2N 14:50